=== PATIENT | female | born 1960 ===

== ENCOUNTER → 2024-06-24 08:46 | Outpatient (REF) | payer BC, SELFPAY | LOC: MRI 08:46 | PROVIDERS: ATTENDING PHYSICIAN Nurse Practitioner Family | DX: M25.551 Pain in right hip (principal); M25.552 Pain in left hip | CPT/HCPCS: 73721 ==

== ENCOUNTER → 2024-07-04 13:48 | Outpatient (REF) | payer BC, SELFPAY | LOC: RAD 13:48 | PROVIDERS: ATTENDING PHYSICIAN Physician Assistant Medical | DX: S22.089D Unspecified fracture of T11-T12 vertebra, subsequent encounter for fracture with routine healing (principal) | CPT/HCPCS: 72131 ==